=== PATIENT | female | born 1970 | race Caucasian/White ===

== ENCOUNTER 2023-07-12 09:48 | Day surgery (SDC) | payer OTHER ==
[2023-07-12 07:53] VITALS: BMI 18.6
[2023-07-12] MEDS ORDERED: PROPOFOL 80 ML ONE (10:07)
[2023-07-12] MEDS ORDERED: LIDOCAINE HCL/PF 2% SDV 5ML VIAL ONE (10:07)
[2023-07-12 10:16] VITALS: RESP 18; TEMP 97
[2023-07-12 11:57] VITALS: BP 112/68; PULSE 78
== END 2023-07-12 12:19 | disposition home or self-care (01) ==
LOC: FASU-ENDO 09:48
PROVIDERS: ATTEND Internal Medicine Gastroenterology
PROC: 0DJD8ZZ Inspection of Lower Intestinal Tract, Via Natural or Artificial Opening Endoscopic (ICD-10-PCS; principal; 2023-07-12 11:21)
DX: Z12.11 Encounter for screening for malignant neoplasm of colon (principal); K64.0 First degree hemorrhoids; K64.8 Other hemorrhoids